=== PATIENT | male | born 1980 | race Two or more races ===

== ENCOUNTER → 2016-12-23 | Day surgery (SDC) | payer OTHER | END | disposition home or self-care (01) | LOC: SDS 12:54 | PROVIDERS: ATTEND Specialist | DX: Z53.9 Procedure and treatment not carried out, unspecified reason (principal) ==

== ENCOUNTER 2017-01-20 08:03 | Day surgery (SDC) | payer OTHER ==
[2017-01-20] VITALS (10 sets, daily range): BP systolic 117–142; BP diastolic 64–85; PULSE 66–88; RESP 9–20; Ht 177.8 cm; Wt 75.2 kg
[~2017-01-20] VITALS: Ht 177.8 cm; Wt 75.2 kg
[~2017-01-20 08:03] MED LIST: DESFLURANE 15 MIN ONE; LIDOCAINE 2% (SDV) 5 ML INJ ONE
[2017-01-20] MEDS ORDERED: ALBU18HF INHALATION (08:51)
[2017-01-20] MEDS ORDERED: MONT10TA24 PO (08:51)
[2017-01-20] MEDS ORDERED: DEXAMETHASONE 4 MG/ML 1 ML INJ ONE (10:27)
[2017-01-20] MEDS ORDERED: PROPOFOL 20 ML ONE (10:27)
[2017-01-20] MEDS ORDERED: FENTAnyl 50 MCG/ML VIAL ONE (10:27)
[2017-01-20] MEDS ORDERED: CEFAZOLIN 1 GM INJ ONE (10:27)
[2017-01-20] MEDS ORDERED: MIDAZOLAM 1 MG/ML 2 ML INJ ONE (10:27)
[2017-01-20] MEDS ORDERED: GLYCOPYRROLATE 0.4 MG INJ ONE (10:27)
[2017-01-20] MEDS ORDERED: ROCURONIUM 50 MG INJ ONE (10:27)
[2017-01-20] MEDS ORDERED: ONDANSETRON 4 MG INJ ONE (10:27)
[2017-01-20] MEDS ORDERED: NEOSTIGMINE 3 MG/3 ML SYRINGE ONE (10:27)
[2017-01-20] MEDS ORDERED: INHALER (10:49)
[2017-01-20 10:51] LABS: ADD SCAN DIFF NO
[2017-01-20 10:56] LABS: BASOPHILS % 0.3 % (0.0-2.0); EOSINOPHILS # 0.1 10^3/ul (0.0-0.5); EOSINOPHILS % 2.3 % (0.0-7.0); HEMOGLOBIN 16.5 g/dl (14.0-18.0); LYMPHOCYTES # 1.7 10^3/ul (0.8-2.9); LYMPHOCYTES % 28.3 % (15.0-51.0); MEAN CORPUSCULAR HEMOGLOBIN 29.4 pg (29.0-33.0); MEAN CORPUSCULAR HGB CONC 34.4 g/dl (32.0-37.0); MEAN CORPUSCULAR VOLUME 85.4 fl (82.0-101.0); MEAN PLATELET VOLUME 10.4 fl (7.4-10.4); MONOCYTE # 0.5 10^3/ul (0.3-0.9); MONOCYTES % 8.5 % (0.0-11.0); NEUTROPHIL # 3.7 10^3/ul (1.6-7.5); NEUTROPHILS % 60.4 % (39.0-77.0); PLATELET COUNT 248 10^3/UL (140-415); RED BLOOD COUNT 5.62 10^6/ul (4.70-6.10); WHITE BLOOD COUNT 6.1 10^3/ul (4.8-10.8)
--- NOTE | 2017-01-20 10:58 | HPN ---
Date/Time of Note Date/Time of Note DATE: 01/20/17 TIME: 10:58 Interval H&P Admission Note Pt. seen H&P reviewed: No system changes MILDRED CATALAN MD January 20, 2017 10:58
[2017-01-20 11:08] LABS: INR 0.96; PARTIAL THROMBOPLASTIN TIME 27.1 Sec (25.0-35.0); PROTIME 12.8 Sec (12.2-14.2)
[2017-01-20 11:23] LABS: ALBUMIN 4.5 g/dl (3.3-4.9)
[2017-01-20 11:26] LABS: BILIRUBIN,INDIRECT 0.7 mg/dl (0-1.1); BILIRUBIN,TOTAL 0.7 mg/dl (0.2-1.3)
[2017-01-20 11:27] LABS: ALBUMIN/GLOBULIN RATIO 1.21; TOTAL PROTEIN 8.2 g/dl (6.1-8.1)
[2017-01-20 11:28] LABS: CALCIUM 9.2 mg/dl (8.4-10.2); CREATININE 0.72 mg/dl (0.61-1.24); POTASSIUM 3.8 mmol/L (3.5-5.1)
[2017-01-20] MEDS ORDERED: ROPIVACAINE 0.5 % 30 ML VIAL ONE (11:34)
[2017-01-20] MEDS ORDERED: EPINEPHrine 1 MG/ML 30 ML INJ ONE (11:34)
[2017-01-20] MEDS ORDERED: hydrALAzine 20 MG INJ IV PRN (12:00)
[2017-01-20] MEDS ORDERED: FENTAnyl 50 MCG/ML VIAL IV PRN ×3 (12:00)
[2017-01-20] MEDS ORDERED: ONDANSETRON 4 MG INJ IV PRN (12:00)
[2017-01-20] MEDS ORDERED: TRIMETHOBENZAMIDE 100 MG/ML VIAL IM PRN (12:00)
[2017-01-20] MEDS ORDERED: MIDAZOLAM 1 MG/ML 2 ML INJ IV PRN (12:00)
[2017-01-20] MEDS ORDERED: DIPHENHYDRAMINE 50 MG INJ IV PRN (12:00)
[2017-01-20] MEDS ORDERED: EPHEDrine SULFATE 50 MG/5 ML SYG IV PRN (12:00)
[2017-01-20] MEDS ORDERED: LABETALOL HCL 20MG INJ IV PRN (12:00)
[2017-01-20] MEDS ORDERED: HYDROmorphONE (0.2 MG/ML) 10ML SYG IV PRN ×3 (12:00)
[2017-01-20] MEDS ORDERED: MEPERIDINE 25 MG INJ IV PRN (12:00)
[2017-01-20] MEDS ORDERED: HYDROCODONE/APAP (5/325) TAB PO PRN ×2 (13:00)
[2017-01-20] MEDS ORDERED: morphine 10 MG INJ IV PRN (13:00)
== END 2017-01-20 14:33 | disposition home or self-care (01) ==
LOC: SDS 08:03
PROVIDERS: ATTEND Specialist
DX: M23.222 Derangement of posterior horn of medial meniscus due to old tear or injury, left knee (principal); J45.909 Unspecified asthma, uncomplicated
CPT/HCPCS: 29881; 80053; 85025; 85610; 85730; J0171; J0690; J1100; J2250; J2405; J2710; J2795; J3010; Z7512; Z7610